=== PATIENT | female | born 1985 | race Caucasian/White ===

== ENCOUNTER 2019-01-23 13:55 | Emergency (ER) | payer BC ==
[~2019-01-23] VITALS: Ht 167.6 cm; Wt 59.1 kg
[2019-01-23 14:01] VITALS: TEMP 97.9
[2019-01-23 14:41] LABS: PROTHROMBIN TIME 11.1 SECONDS (9.7-12.8)
[2019-01-23 14:44] LABS: PARTIAL THROMBOPLASTIN TIME 34.3 SECONDS (26.0-37.0)
[2019-01-23 14:48] LABS: COLLECTION METHOD CLEAN CATCH
[2019-01-23 14:48] LABS: ALANINE AMINOTRANSFERASE 7 U/L (9-52); ALBUMIN 4.6 gm/dL (3.5-5.0); ALKALINE PHOSPHATASE 55 U/L (50-136); ANION GAP 9 mmol/L (7-16); AST,SGOT 22 U/L (15-37); BILIRUBIN,TOTAL 0.6 mg/dL (0.0-1.0); BLOOD UREA NITROGEN 9 mg/dL (7-17); CALCIUM 9.7 mg/dL (8.4-10.2); CARBON DIOXIDE 28 mmol/L (22-30); CHLORIDE 105 mmol/L (98-107); CREATININE, serum 0.85 (0.52-1.25); GLUCOSE 92 mg/dL (74-106); POTASSIUM 3.8 mmol/L (3.4-5.0); SODIUM 142 mmol/L (137-145); TOTAL PROTEIN 7.7 gm/dL (6.4-8.2)
[2019-01-23 14:53] LABS: PH 6 (5-8); SQUAMOUS EPITHELIAL 0-2 /hpf; URINE APPEARANCE Clear; URINE BACTERIA Rare /hpf; URINE BILIRUBIN Negative (NEGATIVE); URINE BLOOD 3+ (NEGATIVE); URINE COLOR Straw; URINE GLUCOSE Negative (NEGATIVE); URINE KETONE Negative (NEGATIVE); URINE LEUKOCYTE ESTERASE Negative (NEGATIVE); URINE NITRATE Negative (NEGATIVE); URINE PROTEIN(semi-quant) Negative (NEGATIVE); URINE RBC 20-50 /hpf; URINE UROBILINOGEN Negative (NEGATIVE)
[2019-01-23 14:59] LABS: TROPONIN-I < 0.012 ng/mL (0.000-0.035)
[2019-01-23 16:09] VITALS: BP 114/76; PULSE 79
[2019-01-23 18:21] LABS: BASO % 0.7 % (0.0-2.0); EOS # 0.1 (0.0-0.7); EOS % 0.9 % (0-4.0); GRAN # 3.3 (1.4-6.5); GRAN % 57.2 % (42.2-75.2); HEMATOCRIT 39.4 % (37.0-47.0); HEMOGLOBIN 13.1 g/dl (12.5-16.0); LYMPH # 1.9 (1.2-3.4); LYMPH % 32.6 % (20.0-51.0); MEAN CELL VOLUME 90 fl (80.0-100.0); MEAN CORPUSCULAR HEMOGLOBIN 30 pg (27.0-31.0); MEAN CORPUSCULAR HGB CONC 33 g/dl (33.0-37.0); MEAN PLATELET VOLUME 10.3 fl (7.4-10.4); MONO # 0.5 (0.1-0.6); MONO % 8.6 % (1.7-9.3); PLATELET COUNT 258 K/mm3 (130-400); REDCELL DISTRIBUTION WIDTH-CV 12.3 % (11.5-14.5)
== END 2019-01-23 16:09 | disposition home or self-care (01) ==
LOC: COL.ER 13:55
PROVIDERS: Family Medicine
DX: R07.89 Other chest pain (principal)
CPT/HCPCS: J1885

== ENCOUNTER 2020-06-23 07:43 | Inpatient (IN) | payer BC ==
[~2020-06-23] VITALS: Ht 165.1 cm; Wt 83.2 kg
[2020-06-23] VITALS (35 sets, daily range): BP systolic 84–124; BP diastolic 51–81; PULSE 65–118; TEMP 97.4–98.6
[~2020-06-23 07:43] MED LIST: PRENATAL MVI
[2020-06-23 08:08] LABS: BASO % 0.4 % (0.0-2.0); EOS % 0.4 % (0-4.0); GRAN # 7.7 (1.4-6.5); GRAN % 77.3 % (42.2-75.2); HEMOGLOBIN 12.4 g/dl (12.5-16.0); LYMPH # 1.4 (1.2-3.4); MEAN CELL VOLUME 91 fl (80.0-100.0); MEAN CORPUSCULAR HEMOGLOBIN 32 pg (27.0-31.0); MEAN CORPUSCULAR HGB CONC 35 g/dl (33.0-37.0); MONO # 0.7 (0.1-0.6); MONO % 7.1 % (1.7-9.3); PLATELET COUNT 209 K/mm3 (130-400); RED BLOOD COUNT 3.91 M/mm3 (4.10-5.30); REDCELL DISTRIBUTION WIDTH-CV 12.5 % (11.5-14.5)
[2020-06-23 08:12] LABS: HEMATOCRIT 35.5 % (37.0-47.0)
[2020-06-24] VITALS: BP 101/64; PULSE 77; TEMP 97.9
[2020-06-24 03:45] VITALS: BP 99/62; PULSE 72; TEMP 97.2
[2020-06-24 06:52] VITALS: BP 107/69; PULSE 73; TEMP 97.5
[2020-06-24] MEDS ORDERED: PERCOCET 325 MG1 TA2 PO (09:28)
[2020-06-24] MEDS ORDERED: MOTRIN 600600 MG/TAB PO (09:28)
[2020-06-24 10:46] VITALS: BP 107/67; PULSE 79
[2020-06-24 16:37] VITALS: BP 101/61; PULSE 81; TEMP 97.6
[2020-06-24 20:00] VITALS: BP 102/58; PULSE 89; TEMP 97.5
[2020-06-25 06:45] VITALS: BP 102/76; PULSE 81
[2020-06-25 13:39] VITALS: BP 111/67; PULSE 80
== END 2020-06-25 14:45 | disposition home or self-care (01) | DRG 768 ==
LOC: LDRO 07:43 → LDR 07:44 → OB 06-24 02:40
PROVIDERS: Obstetrics & Gynecology; ADMIT Obstetrics & Gynecology
PROC: 10E0XZZ Delivery of Products of Conception, External Approach (ICD-10-PCS; principal; 2020-06-23)
PROC: 0DQR0ZZ Repair Anal Sphincter, Open Approach (ICD-10-PCS; 2020-06-23)
PROC: 0KQM0ZZ Repair Perineum Muscle, Open Approach (ICD-10-PCS; 2020-06-23)
PROC: 10907ZC Drainage of Amniotic Fluid, Therapeutic from Products of Conception, Via Natural or Artificial Opening (ICD-10-PCS; 2020-06-23)
DX: O99.824 Streptococcus B carrier state complicating childbirth (principal); Z37.0 Single live birth; O69.81X0 Labor and delivery complicated by cord around neck, without compression, not applicable or unspecified; O70.1 Second degree perineal laceration during delivery; O70.4 Anal sphincter tear complicating delivery, not associated with third degree laceration; Z3A.39 39 weeks gestation of pregnancy
CPT/HCPCS: J2540; J2590; J7120

== ENCOUNTER → 2021-05-05 | Outpatient (CLI) | payer BC ==
[~2021-05-05] MED LIST changes: +MOTRIN 600600 MG/TAB PO; +PERCOCET 325 MG1 TA2 PO
== END ==
LOC: COL.RAD 04-28 09:45
DX: R93.7 Abnormal findings on diagnostic imaging of other parts of musculoskeletal system (principal)
CPT/HCPCS: A9503